=== PATIENT | female | born 1970 | race Hispanic/Latino ===

== ENCOUNTER 2017-05-26 08:47 | Observation (INO) | payer MEDICAID ==
[2017-05-25 14:43] VITALS: BP 149/75
[2017-05-25 14:53] LABS: BASOPHILS % (AUTO) 0.6 % (0.0-5.0); EOSINOPHILS % (AUTO) 0.6 % (0.0-8.0); HEMATOCRIT 40.3 % (36-48); LYMPHOCYTES % (AUTO) 25.6 % (21.0-51.0); MEAN CORPUSCULAR HEMOGLOBIN 32.3 pg (27.0-33.0); MEAN CORPUSCULAR HGB CONC 34.6 g/dL (32.0-36.0); MEAN CORPUSCULAR VOLUME 93.6 fL (79-99); MONOCYTES % (AUTO) 7.5 % (3.0-13.0); NEUTROPHILS % (AUTO) 65.7 % (40.0-77.0); PLATELET COUNT (AUTO) 245 K/uL (130-400); RED BLOOD CELL COUNT(AUTO) 4.31 MIL/uL (4.00-5.50); RED CELL DISTRIBUTION WIDTH 12.6 % (11.0-15.5); WHITE BLOOD COUNT (AUTO) 7.4 K/uL (4.8-10.8)
[2017-05-25 14:55] LABS: APPEARANCE,URINE Clear (CLEAR); BILIRUBIN,URINE Negative (NEGATIVE); COLOR,URINE Yellow (YELLOW); GLUCOSE, URINE (UA) Negative (NEGATIVE); KETONES,URINE Negative (NEGATIVE); LEUKOCYTE ESTERASE ,URINE Trace (NEGATIVE); NITRATE,URINE Negative (NEGATIVE); OCCULT BLOOD,URINE Negative (NEGATIVE); PH,URINE 7.5 (5.0-8.0); PROTEIN,URINE Negative (NEGATIVE)
[2017-05-25 15:29] LABS: BACTERIA,URINE Rare /HPF (None Seen); RBC,URINE 0-1 /HPF (0-1)
[2017-05-25 15:30] LABS: SQUAMOUS EPITHELIAL CELL,UR Rare /HPF (0-2)
[2017-05-26] VITALS (22 sets, daily range): BP systolic 97–168; BP diastolic 45–92
[~2017-05-26] VITALS: Ht 157.5 cm; Wt 83.5 kg
[2017-05-26] MEDS ORDERED: MELA1TAB28 PO (09:18)
[2017-05-26] MEDS ORDERED: LACTATED RINGERS 1000ML 1,000 ML IV ONE (09:22)
[2017-05-26] MEDS ORDERED: MIDAZOLAM HCL 1 MG/ML 2ML VIAL ONE (10:41)
[2017-05-26] MEDS ORDERED: PROPOFOL 10 MG/ML 20ML VIAL IV ONE (10:42)
[2017-05-26] MEDS ORDERED: FENTANYL CITRATE PF 50 MCG/1 ML 2ML VIAL ONE ×3 (10:42→11:45)
[2017-05-26] MEDS ORDERED: CEFAZOLIN SODIUM 1 GM VIAL ONE (11:14)
[2017-05-26] MEDS ORDERED: ROCURONIUM BROMIDE 10MG/1ML 5ML VL ONE (11:43)
[2017-05-26] MEDS ORDERED: SUCCINYLCHOLINE CHLORIDE 20 MG/ML 10 ML VIAL ONE (11:43)
[2017-05-26] MEDS ORDERED: ONDANSETRON HCL MDV 20ML 2 MG/ML VIAL ONE (11:43)
[2017-05-26] MEDS ORDERED: GLYCOPYRROLATE 0.2 MG/ML 5 ML VIAL ONE (11:44)
[2017-05-26] MEDS ORDERED: PHENYLEPHRINE HCL 10 MG/ML 1ML VIAL IV ONE (11:44)
[2017-05-26] MEDS ORDERED: LIDOCAINE HCL 4% LTA SOL 4 ML VIAL ONE (11:44)
[2017-05-26] MEDS ORDERED: LIDOCAINE HCL 2% JELLY 5 ML ONE (11:44)
[2017-05-26] MEDS ORDERED: CALDOLOR 800MG+NS 250ML 250 ML IV ONE (12:19)
[2017-05-26] MEDS ORDERED: FENTANYL CITRATE PF 50 MCG/1 ML 5ML AMP IV ONE (13:27)
[2017-05-26] MEDS ORDERED: MORPHINE SULFATE 2 MG/ML 1ML SYG IV PRN (13:45)
[2017-05-26] MEDS ORDERED: ONDANSETRON HCL 4 MG/2 ML VIAL IVP PRN (13:45)
[2017-05-26] MEDS ORDERED: ACETAMINOPHEN-CODEINE 300/30MG TAB PO PRN (13:45)
[2017-05-26] MEDS ORDERED: MEPERIDINE-PF 25 MG/ML SYG ONE (13:46)
[2017-05-26] MEDS: LACTATED RINGERS 1000ML 1,000 ML IV SCH (15:49)
[2017-05-26] MEDS ORDERED: CEFAZOLIN 2GM / 50 ML 50 ML IV SCH (19:00)
[2017-05-26] MEDS: CEFAZOLIN SODIUM 1 GM VIAL IVP SCH (19:06)
[2017-05-26] MEDS: MORPHINE SULFATE 4 MG/1ML SYG IV PRN (22:34)
[2017-05-27] MEDS: CEFAZOLIN SODIUM 1 GM VIAL IVP SCH (03:01)
[2017-05-27 04:00] VITALS: BP 120/64
[2017-05-27 08:43] VITALS: BP 140/81
[2017-05-27] MEDS: MORPHINE SULFATE 4 MG/1ML SYG IV PRN ×2 (08:43→22:23)
[2017-05-27] MEDS: LACTATED RINGERS 1000ML 1,000 ML IV SCH (08:44)
[2017-05-27 11:53] VITALS: BP 120/76
[2017-05-27] MEDS: ACETAMINOPHEN-CODEINE 300/30MG TAB PO PRN (17:16)
[2017-05-27 19:00] VITALS: BP 155/86
[2017-05-27 23:50] VITALS: BP 148/74
[2017-05-28 04:57] VITALS: BP 137/67
[2017-05-28] MEDS: ACETAMINOPHEN-CODEINE 300/30MG TAB PO PRN (08:01)
[2017-05-28 08:13] VITALS: BP 134/74
[2017-05-28] MEDS ORDERED: ACET1TAB12 PO (09:42)
== END 2017-05-28 11:32 | disposition home or self-care (01) ==
LOC: DAH 08:47 → DAHIP 08:48 → 4AH 15:22
PROVIDERS: ADMIT Surgery; ATTEND Surgery
DX: C50.911 Malignant neoplasm of unspecified site of right female breast (principal)
CPT/HCPCS: 19303; 19307; 36415; 81001; 84703; 85025; 88307; 88309; 96374; 96375; 96376 ×2; A4218 ×2; A4452; A4930; G0378 ×51; J0330; J0690 ×3; J1741; J2175; J2250; J2270 ×4; J2370; J2704; J3010 ×4; J3490 ×2; J7030; J7120 ×2

== ENCOUNTER → 2017-06-17 | Outpatient (CLI) | payer MEDICAID ==
[~2017-06-17] MED LIST: ACET1TAB12 PO; MELA1TAB28 PO
== END | disposition home or self-care (01) ==
LOC: RAH 09:44
PROVIDERS: ATTEND Internal Medicine Medical Oncology
DX: Z45.2 Encounter for adjustment and management of vascular access device (principal); I51.7 Cardiomegaly; Z98.890 Other specified postprocedural states
CPT/HCPCS: 93306

== ENCOUNTER 2017-06-23 06:23 | Inpatient (IN) | payer MEDICAID ==
[2017-06-22 10:52] LABS: BASOPHILS % (AUTO) 0.7 % (0.0-5.0); EOSINOPHILS % (AUTO) 0.9 % (0.0-8.0); HEMATOCRIT 39.6 % (36-48); LYMPHOCYTES % (AUTO) 28.5 % (21.0-51.0); MEAN CORPUSCULAR HGB CONC 34.3 g/dL (32.0-36.0); MEAN CORPUSCULAR VOLUME 93.3 fL (79-99); MONOCYTES % (AUTO) 6.6 % (3.0-13.0); NEUTROPHILS % (AUTO) 63.3 % (40.0-77.0); PLATELET COUNT (AUTO) 269 K/uL (130-400); RED BLOOD CELL COUNT(AUTO) 4.24 MIL/uL (4.00-5.50); RED CELL DISTRIBUTION WIDTH 12.4 % (11.0-15.5)
[2017-06-22 11:30] VITALS: BP 119/66
[~2017-06-23] VITALS: Ht 157.5 cm; Wt 77.4 kg
[2017-06-23] VITALS (21 sets, daily range): BP systolic 123–154; BP diastolic 64–84
[2017-06-23] MEDS: CEFAZOLIN SODIUM 1 GM VIAL IVP SCH ×2 (07:00→07:42)
[2017-06-23] MEDS ORDERED: LACTATED RINGERS 1000ML 1,000 ML IV ONE (07:18)
[2017-06-23] MEDS ORDERED: HEPARIN SODIUM 1000UNIT/ML 10ML VIAL ONE (07:28)
[2017-06-23] MEDS ORDERED: ONDANSETRON HCL 4 MG/2 ML VIAL IVP ONE (07:37)
[2017-06-23] MEDS ORDERED: MIDAZOLAM HCL 1 MG/ML 2ML VIAL IVP ONE (07:37)
[2017-06-23] MEDS ORDERED: GLYCOPYRROLATE 0.2 MG/ML 5 ML VIAL IM ONE (07:37)
[2017-06-23] MEDS ORDERED: LIDOCAINE PF 2% 5ML ABBOJECT IVP ONE (07:37)
[2017-06-23] MEDS ORDERED: DEXAMETHASONE SOD PHOSPHATE 10MG/ML 1ML VIAL IM ONE (07:37)
[2017-06-23] MEDS ORDERED: PROPOFOL 10 MG/ML 20ML VIAL IV ONE ×2 (07:38→08:33)
[2017-06-23] MEDS ORDERED: FENTANYL CITRATE PF 50 MCG/1 ML 2ML VIAL IJ ONE (07:38)
[2017-06-23] MEDS ORDERED: BUPIVACAINE/PF 0.25% 30ML VIAL IJ ONE (09:20)
[2017-06-23] MEDS ORDERED: FENTANYL CITRATE PF 50 MCG/1 ML 2ML VIAL ONE (09:49)
[2017-06-23] MEDS ORDERED: SIMETHICONE 80 MG TAB.CHEW PO PRN (11:00)
[2017-06-23] MEDS ORDERED: MEPERIDINE 10MG/ML 50ML PCA 50 ML IV PRN (11:00)
[2017-06-23] MEDS ORDERED: PROMETHAZINE HCL 25 MG/ML 1ML AMPULE IM PRN (11:00)
[2017-06-23] MEDS ORDERED: DOCUSATE SODIUM 100 MG CAP PO PRN (11:00)
[2017-06-23] MEDS ORDERED: ACETAMINOPHEN-CODEINE 300/30MG TAB PO PRN (11:00)
[2017-06-23] MEDS ORDERED: ONDANSETRON HCL 4 MG/2 ML VIAL IV PRN (11:00)
[2017-06-23] MEDS ORDERED: NALOXONE HCL 0.4 MG/1 ML ML IVP PRN (11:00)
[2017-06-23] MEDS ORDERED: DiphenhydrAMINE HCL 50 MG/ML VIAL IV PRN (11:00)
[2017-06-23] MEDS ORDERED: BISACODYL 10 MG SUPP.RECT RC PRN (11:00)
[2017-06-23] MEDS ORDERED: MEPERIDINE-PF 25 MG/ML SYG ONE ×2 (11:10→11:18)
[2017-06-23 11:32] LABS: APPEARANCE BODY FLUID CLOUDY (CLEAR); COLOR,BODY FLUID RED (LT YELLOW)
[2017-06-23 11:33] LABS: TOTAL VOLUME,BODY FLUID 38 mL
[2017-06-23 11:34] LABS: BODY FLUID WBC 7 /cu. mm.; SPECIMENTYPE,BODY FLUID WASHINGS
[2017-06-23 11:35] LABS: BODY FLUID RBC 13125 /cu. mm.
[2017-06-23] MEDS ORDERED: PROMETHAZINE HCL 25 MG/ML 1ML AMPULE IM ONE ×2 (11:50→14:30)
[2017-06-23 12:13] LABS: BF LYMPHOCYTE 1 %
[2017-06-23] MEDS ORDERED: MEPERIDINE-PF 75 MG/ML SYG ONE (12:53)
[2017-06-23] MEDS: DEXTROSE 5 %-0.45 % NACL 1,000 ML IV PRN ×2 (13:21→23:41)
[2017-06-23] MEDS ORDERED: CALDOLOR 800MG+NS 250ML 250 ML IV ONE (14:03)
[2017-06-23] MEDS: CALDOLOR 800MG+NS 250ML 250 ML IVPB SCH ×2 (14:11→22:10)
[2017-06-23] MEDS ORDERED: MEPERIDINE HCL/PF 25 MG/0.5 ML AMPUL IM ONE (14:30)
[2017-06-23] MEDS: CEFAZOLIN 3GM /D5W 100ML 100 ML IV SCH ×2 (16:15→23:37)
[2017-06-24 00:36] VITALS: BP 143/74
[2017-06-24 03:26] VITALS: BP 134/58
[2017-06-24] MEDS: CEFAZOLIN SODIUM 1 GM VIAL IVP SCH (05:00)
[2017-06-24 06:52] LABS: HEMATOCRIT 35.1 % (36-48); MEAN CORPUSCULAR HEMOGLOBIN 31.5 pg (27.0-33.0); MEAN CORPUSCULAR HGB CONC 34.1 g/dL (32.0-36.0); MEAN CORPUSCULAR VOLUME 92.4 fL (79-99); PLATELET COUNT (AUTO) 239 K/uL (130-400); RED CELL DISTRIBUTION WIDTH 12.3 % (11.0-15.5); WHITE BLOOD COUNT (AUTO) 10.5 K/uL (4.8-10.8)
[2017-06-24 08:19] VITALS: BP 133/79
[2017-06-24] MEDS ORDERED: ACETAMINOPHEN-CODEINE 300/30MG TAB PO PRN (10:30)
[2017-06-24] MEDS ORDERED: IBUPROFEN 800 MG TAB PO SCH (11:00)
[2017-06-24] MEDS ORDERED: SIMETHICONE 80 MG TAB.CHEW PO PRN (12:15)
[2017-06-24 12:21] VITALS: BP 147/91
[2017-06-24 15:55] VITALS: BP 148/90
== END 2017-06-24 16:00 | disposition home or self-care (01) | DRG 364 ==
LOC: DAH 06:23 → WSH 06:24
PROC: 0UT70ZZ Resection of Bilateral Fallopian Tubes, Open Approach (ICD-10-PCS; 2017-06-23)
PROC: 0UT20ZZ Resection of Bilateral Ovaries, Open Approach (ICD-10-PCS; principal; 2017-06-23 07:38)
PROC: 0WJJ4ZZ Inspection of Pelvic Cavity, Percutaneous Endoscopic Approach (ICD-10-PCS; 2017-06-23 07:38)
PROC: 0JH63XZ Insertion of Tunneled Vascular Access Device into Chest Subcutaneous Tissue and Fascia, Percutaneous Approach (ICD-10-PCS; 2017-06-23 07:38)
PROC: 05H633Z Insertion of Infusion Device into Left Subclavian Vein, Percutaneous Approach (ICD-10-PCS; 2017-06-23 07:38)
DX: C50.919 Malignant neoplasm of unspecified site of unspecified female breast (principal); E66.9 Obesity, unspecified; Z15.01 Genetic susceptibility to malignant neoplasm of breast; N73.6 Female pelvic peritoneal adhesions (postinfective); Z68.31 Body mass index [BMI] 31.0-31.9, adult
CPT/HCPCS: 36415; 71045; 84703; 85025; 85027; 88305; 89051; A4218; C1788; J0690; J1100; J1644; J1741; J2001; J2175; J2250; J2405; J2550; J2704; J3010; J3490; J7120

== ENCOUNTER → 2018-04-13 | Outpatient (CLI) | payer MEDICAID | END | disposition home or self-care (01) | LOC: RAH 13:01 | PROVIDERS: ATTEND Internal Medicine Medical Oncology | DX: M89.8X9 Other specified disorders of bone, unspecified site (principal); Z85.3 Personal history of malignant neoplasm of breast | CPT/HCPCS: 78306; A9503 ==

== ENCOUNTER → 2018-08-29 | Outpatient (CLI) | payer MEDICAID | END | disposition home or self-care (01) | LOC: RAH 10:31 | PROVIDERS: ATTEND Family Medicine | DX: R22.9 Localized swelling, mass and lump, unspecified (principal); Z85.3 Personal history of malignant neoplasm of breast | CPT/HCPCS: 76882 ==

== ENCOUNTER → 2018-09-20 | Outpatient (CLI) | payer MEDICAID | END | disposition home or self-care (01) | LOC: RAH 17:08 | PROVIDERS: ATTEND Family Medicine | DX: R03.0 Elevated blood-pressure reading, without diagnosis of hypertension (principal); R05 Cough; R10.84 Generalized abdominal pain | CPT/HCPCS: 71046; 74018 ==

== ENCOUNTER → 2018-10-03 | Outpatient (CLI) | payer MEDICAID ==
[~2018-10-03] MED LIST changes: -ACET1TAB12 PO; +LIDOCAINE HCL 1% 20 ML VIAL ONE; -MELA1TAB28 PO; +SODIUM BICARB 50MEQ 50ML VIAL ONE
--- NOTE | 2018-10-03 08:50 | NUR ---
ULTRASOUND GUIDED BIOPSY LEFT AXILLARY LYMPH NODE ULTRASOUND OF THE LEFT AXILLA PERFORMED BY [employer]. DR. LÓPEZ VIEWED IMAGES AND PERFORMED ULTRASOUND. NOTED NOTHING TO BIOPSY. DR. LÓPEZ INSTRUCTED PATIENT TO FOLLOWUP WITH DR. ZIMMERMAN AND INFORMED HER HE RECOMMENDS A REPEAT ULTRASOUND OF THE LEFT AXILLA IN [address] LÓPEZ STATED HE WOULD CALL DR ZIMMERMAN TO INFORM HIM.
== END | disposition home or self-care (01) ==
LOC: RAH 07:42
PROVIDERS: ATTEND Internal Medicine Medical Oncology
DX: R59.0 Localized enlarged lymph nodes (principal)
CPT/HCPCS: 76882; J3490

== ENCOUNTER 2018-11-29 05:38 | Day surgery (SDC) | payer MEDICAID ==
[~2018-11-29] VITALS: Ht 154.9 cm; Wt 75.3 kg
[~2018-11-29 05:38] MED LIST changes: -LIDOCAINE HCL 1% 20 ML VIAL ONE; +LORA0.5T2 PO; +LURA40TA PO; +SIMV10TA97 PO; -SODIUM BICARB 50MEQ 50ML VIAL ONE; +TRAM50TA4 PO; +TRAZ150T79 PO; +TRINTELLIX PO; +VENL-53 PO
[2018-11-29] MEDS ORDERED: SODIUM CHLORIDE 0.9% 1000ML 1,000 ML IV ONE (05:40)
[2018-11-29] MEDS ORDERED: PROPOFOL 10 MG/ML 20ML VIAL IV ONE ×2 (07:54→07:56)
[2018-11-29 08:18] VITALS: BP 154/92
[2018-11-29 08:23] VITALS: BP 165/88
[2018-11-29 08:30] VITALS: BP 172/97
== END 2018-11-29 08:40 | disposition home or self-care (01) ==
LOC: DAH 05:38 → ENDO 05:38
PROVIDERS: ATTEND Internal Medicine Gastroenterology
DX: Z12.11 Encounter for screening for malignant neoplasm of colon (principal); D12.0 Benign neoplasm of cecum; K62.1 Rectal polyp; K29.70 Gastritis, unspecified, without bleeding; B96.81 Helicobacter pylori [H. pylori] as the cause of diseases classified elsewhere; K22.8 Other specified diseases of esophagus; K57.30 Diverticulosis of large intestine without perforation or abscess without bleeding; K64.0 First degree hemorrhoids; K44.9 Diaphragmatic hernia without obstruction or gangrene; K31.89 Other diseases of stomach and duodenum; F41.9 Anxiety disorder, unspecified; E78.5 Hyperlipidemia, unspecified; M19.90 Unspecified osteoarthritis, unspecified site; F32.9 Major depressive disorder, single episode, unspecified; R13.10 Dysphagia, unspecified; E78.2 Mixed hyperlipidemia; Z87.891 Personal history of nicotine dependence; Z85.3 Personal history of malignant neoplasm of breast; J45.909 Unspecified asthma, uncomplicated; Z79.899 Other long term (current) drug therapy; Z90.10 Acquired absence of unspecified breast and nipple; Z80.0 Family history of malignant neoplasm of digestive organs
CPT/HCPCS: 43239; 45380; 45385; 88305; A4215; A4221; A4222; A4223; A4606; A4620; A4663; J2704 ×2; J7030

== ENCOUNTER 2018-12-13 22:36 | Emergency (ER) | payer MEDICAID ==
[2018-12-13] MEDS ORDERED: METHYLPREDNISOLONE SOD SUCC 125MG/2ML VIAL ONE (22:58)
[2018-12-13] MEDS ORDERED: IPRATROPIUM/ALBUTEROL SULFATE 3 ML SOLUTION IH ONE (23:07)
[2018-12-14] MEDS ORDERED: IPRATROPIUM/ALBUTEROL SULFATE 3 ML SOLUTION IH ONE
== END 2018-12-14 00:36 | disposition home or self-care (01) ==
LOC: EDH 22:36
DX: J20.9 Acute bronchitis, unspecified (principal); E78.5 Hyperlipidemia, unspecified; F32.9 Major depressive disorder, single episode, unspecified; F41.9 Anxiety disorder, unspecified; K21.9 Gastro-esophageal reflux disease without esophagitis; Z87.891 Personal history of nicotine dependence; Z85.3 Personal history of malignant neoplasm of breast; Z98.51 Tubal ligation status
CPT/HCPCS: 71045; 84484 ×2; 93005; 94640 ×2; 96374; 99285; J2930

== ENCOUNTER → 2019-07-30 | Outpatient (CLI) | payer MEDICAID ==
[~2019-07-30] MED LIST changes: +FAMO40TA7 PO; +FENO145T26 PO; +MONT10TA26 PO; +OMEP40CA13 PO; +POLYETHYLENE PO
== END | disposition home or self-care (01) ==
LOC: RAH 09:51
PROVIDERS: ATTEND Internal Medicine
DX: I51.7 Cardiomegaly (principal)
CPT/HCPCS: 93306; 93356

== ENCOUNTER → 2019-08-07 | Outpatient (CLI) | payer OTHER | END | disposition home or self-care (01) | LOC: RAH 13:48 | PROVIDERS: ATTEND Internal Medicine Cardiovascular Disease | DX: Z13.6 Encounter for screening for cardiovascular disorders (principal) | CPT/HCPCS: 75571 ==

== ENCOUNTER 2019-09-11 07:13 | Day surgery (SDC) | payer MEDICAID ==
[2019-09-07 11:13] LABS: BASOPHILS % (AUTO) 0.6 % (0.0-5.0); EOSINOPHILS % (AUTO) 0.7 % (0.0-8.0); HEMATOCRIT 40.5 % (36-48); LYMPHOCYTES % (AUTO) 28.4 % (21.0-51.0); MEAN CORPUSCULAR HEMOGLOBIN 32.5 pg (27.0-33.0); MEAN CORPUSCULAR HGB CONC 33.3 g/dL (32.0-36.0); MEAN CORPUSCULAR VOLUME 97.6 fL (79-99); MONOCYTES % (AUTO) 9.5 % (3.0-13.0); NEUTROPHILS % (AUTO) 60.4 % (40.0-77.0); PLATELET COUNT (AUTO) 251 K/uL (130-400); RED BLOOD CELL COUNT(AUTO) 4.15 MIL/uL (4.00-5.50); RED CELL DISTRIBUTION WIDTH 12.7 % (11.0-15.5); WHITE BLOOD COUNT (AUTO) 6.8 K/uL (4.8-10.8)
[2019-09-07 11:25] LABS: CREATININE 0.6 mg/dL (0.5-1.5); POTASSIUM 3.5 mmol/L (3.5-5.1)
[2019-09-07 11:42] LABS: INR 0.89 (0.85-1.15); PARTIAL THROMBOPLASTIN TIME 25.7 SEC (26.3-35.5); PROTHROMBIN TIME 9.7 SEC (9.6-11.6)
[2019-09-10 09:59] VITALS: BP 157/77
[~2019-09-11] VITALS: Ht 158.8 cm; Wt 79.1 kg
[~2019-09-11 07:13] MED LIST changes: -TRAM50TA4 PO; -TRAZ150T79 PO; -VENL-53 PO
[2019-09-11 08:42] VITALS: BP 175/81
[2019-09-11] MEDS: SODIUM CHLORIDE 0.9% 1000ML 1,000 ML IV ONE (08:47)
[2019-09-11] MEDS ORDERED: LIDOCAINE HCL 1% MDV 50ML VIAL ONE (09:13)
[2019-09-11] MEDS ORDERED: FENTANYL CITRATE PF 50 MCG/1 ML 2ML VIAL ONE (09:48)
[2019-09-11] MEDS ORDERED: OCTYL 2-CYANOACRYLATE 1 EACH TP ONE (09:57)
[2019-09-11 10:15] VITALS: BP 187/95
[2019-09-11 10:30] VITALS: BP 161/90
[2019-09-11 10:45] VITALS: BP 171/83
[2019-09-11 11:00] VITALS: BP 163/83
== END 2019-09-11 11:20 | disposition home or self-care (01) ==
LOC: DAH 07:13
PROVIDERS: ATTEND Internal Medicine Medical Oncology
DX: Z45.2 Encounter for adjustment and management of vascular access device (principal); Z11.59 Encounter for screening for other viral diseases; I10 Essential (primary) hypertension; E78.5 Hyperlipidemia, unspecified; J45.909 Unspecified asthma, uncomplicated; Z98.890 Other specified postprocedural states; Z85.3 Personal history of malignant neoplasm of breast; Z87.891 Personal history of nicotine dependence; Z79.899 Other long term (current) drug therapy; Z79.01 Long term (current) use of anticoagulants
CPT/HCPCS: 36415; 36590; 77001; 80048; 85025; 85610; 85730; A4606; J1644; J3010; J3490; J7030

== ENCOUNTER 2020-02-12 13:45 | Emergency (ER) | payer MEDICAID ==
[~2020-02-12 13:45] MED LIST changes: -MONT10TA26 PO; +MONT10TA96 PO
[2020-02-12] MEDS ORDERED: DEXAMETHASONE SOD PHOSPHATE 10MG/ML 1ML VIAL ONE (15:48)
== END 2020-02-12 15:59 | disposition home or self-care (01) ==
LOC: EDH 13:45
DX: T78.3XXA Angioneurotic edema, initial encounter (principal); F41.9 Anxiety disorder, unspecified; I10 Essential (primary) hypertension; F32.9 Major depressive disorder, single episode, unspecified; K21.9 Gastro-esophageal reflux disease without esophagitis; Z85.3 Personal history of malignant neoplasm of breast; X58.XXXA Exposure to other specified factors, initial encounter
CPT/HCPCS: 87804 ×2; 87880; 96372; 99283; J1100

== ENCOUNTER → 2020-06-19 | Outpatient (CLI) | payer MEDICAID ==
[~2020-06-19] MED LIST changes: +MONT10TA32 PO; -MONT10TA96 PO
== END | disposition home or self-care (01) ==
LOC: OIH 14:29
PROVIDERS: ATTEND Family Medicine
DX: R06.02 Shortness of breath (principal); R05 Cough
CPT/HCPCS: 71046

== ENCOUNTER → 2020-07-29 | Outpatient (CLI) | payer MEDICAID | END | disposition home or self-care (01) | LOC: RAH 08:14 | PROVIDERS: ATTEND Family Medicine | DX: K76.89 Other specified diseases of liver (principal); K76.0 Fatty (change of) liver, not elsewhere classified; R16.0 Hepatomegaly, not elsewhere classified | CPT/HCPCS: 76705 ==

== ENCOUNTER → 2020-10-02 | Outpatient (CLI) | payer MEDICAID ==
[~2020-10-02] MED LIST changes: -OMEP40CA13 PO; +OMEP40CA21 PO
== END | disposition home or self-care (01) ==
LOC: RAH 09:51
PROVIDERS: ATTEND Family Medicine
DX: R22.2 Localized swelling, mass and lump, trunk (principal)
CPT/HCPCS: 76882

== ENCOUNTER → 2021-07-31 | Outpatient (CLI) | payer MEDICAID ==
[~2021-07-31] MED LIST changes: -LURA40TA PO; +LURA40TA2 PO; +MONT-39 PO; -MONT10TA32 PO
== END | disposition home or self-care (01) ==
LOC: RAH 07:16
PROVIDERS: ATTEND Internal Medicine Gastroenterology
DX: R14.0 Abdominal distension (gaseous) (principal); R10.13 Epigastric pain
CPT/HCPCS: 78264; A9541

== ENCOUNTER 2022-08-15 17:27 | Emergency (ER) | payer MEDICAID ==
[~2022-08-15] VITALS: Ht 154.9 cm; Wt 86.2 kg
[2022-08-15 17:58] LABS: BASOPHILS % (AUTO) 0.3 % (0.0-5.0); EOSINOPHILS % (AUTO) 0.4 % (0.0-8.0); HEMATOCRIT 37.6 % (36-48); LYMPHOCYTES % (AUTO) 19.9 % (21.0-51.0); MEAN CORPUSCULAR HEMOGLOBIN 30.8 pg (27.0-33.0); MEAN CORPUSCULAR VOLUME 93.5 fL (79-99); MONOCYTES % (AUTO) 6.3 % (3.0-13.0); NEUTROPHILS % (AUTO) 72.8 % (40.0-77.0); PLATELET COUNT (AUTO) 310 K/uL (130-400); RED BLOOD CELL COUNT(AUTO) 4.02 MIL/uL (4.00-5.50); RED CELL DISTRIBUTION WIDTH 12.6 % (11.0-15.5); WHITE BLOOD COUNT (AUTO) 11.7 K/uL (4.8-10.8)
[2022-08-15 17:58] LABS: BASE EXCESS,VENOUS BLOOD GAS 1.1 (-2.0-3.0); HCO3,VENOUS BLOOD GAS 24.2 (21.0-28.0); PCO2,VENOUS BLOOD GAS 34 (32-45); PH,VENOUS BLOOD GAS 7.471 (7.350-7.450)
[2022-08-15 18:20] LABS: ALBUMIN 3.6 g/dL (3.5-5.0); CREATININE 0.7 mg/dL (0.5-1.5); MAGNESIUM 1.4 mg/dL (1.80-2.40); POTASSIUM 3.5 mmol/L (3.5-5.1); TOTAL PROTEIN, SERUM 7.3 g/dL (6.0-8.3)
[2022-08-15 18:25] LABS: B-TYPE NATRIURETIC PEPTIDE 12 pg/mL (0-100)
[2022-08-15 19:22] VITALS: BP 126/60
== END 2022-08-15 20:35 | disposition home or self-care (01) ==
LOC: EDH 17:27
DX: R42 Dizziness and giddiness (principal); F41.9 Anxiety disorder, unspecified; F32.A Depression, unspecified; J45.909 Unspecified asthma, uncomplicated; I10 Essential (primary) hypertension; Z79.899 Other long term (current) drug therapy; Z85.3 Personal history of malignant neoplasm of breast
CPT/HCPCS: 36415; 36600; 71045; 80053; 82803; 83735; 83880; 84484; 85025; 93005

== ENCOUNTER → 2023-01-04 | Outpatient (CLI) | payer OTHER | END | disposition home or self-care (01) | LOC: RAH 14:56 | PROVIDERS: ATTEND Internal Medicine | DX: M17.12 Unilateral primary osteoarthritis, left knee (principal); M25.562 Pain in left knee | CPT/HCPCS: 73562 ==

== ENCOUNTER → 2023-06-15 | Outpatient (CLI) | payer MEDICAID | END | disposition home or self-care (01) | LOC: SHCH 10:51 | PROVIDERS: ATTEND Internal Medicine Cardiovascular Disease | DX: R07.9 Chest pain, unspecified (principal) | CPT/HCPCS: 93306 ==

== ENCOUNTER → 2023-07-14 | Outpatient (CLI) | payer OTHER | END | disposition home or self-care (01) | LOC: RAH 12:55 | PROVIDERS: ATTEND Internal Medicine Cardiovascular Disease | DX: Z13.6 Encounter for screening for cardiovascular disorders (principal) | CPT/HCPCS: 75571 ==

== ENCOUNTER 2023-08-29 17:23 | Emergency (ER) | payer MEDICAID, OTHER ==
[~2023-08-29] VITALS: Ht 154.9 cm; Wt 81.6 kg
[2023-08-29 17:53] LABS: BASOPHILS # (AUTO) 0.04 K/uL (0.00-0.20); BASOPHILS % (AUTO) 0.5 % (0.0-5.0); EOSINOPHILS # (AUTO) 0.14 K/uL (0.00-0.70); EOSINOPHILS % (AUTO) 1.6 % (0.0-8.0); HEMATOCRIT 32.9 % (36-48); IMMATURE GRANULOCYTE ABSOLUTE 0.05 K/uL (0-1); LYMPHOCYTES % (AUTO) 23.8 % (21.0-51.0); MEAN CORPUSCULAR HEMOGLOBIN 31.5 pg (27.0-33.0); MEAN CORPUSCULAR HGB CONC 33.4 g/dL (32.0-36.0); MEAN CORPUSCULAR VOLUME 94.3 fL (79-99); MONOCYTES # (AUTO) 0.7 K/uL (0.1-1.0); NEUTROPHILS # (AUTO) 5.6 K/uL (1.8-7.7); NEUTROPHILS % (AUTO) 65.5 % (40.0-77.0); PLATELET COUNT (AUTO) 327 K/uL (130-400); RED BLOOD CELL COUNT(AUTO) 3.49 MIL/uL (4.00-5.50); RED CELL DISTRIBUTION WIDTH 12.4 % (11.0-15.5); WHITE BLOOD COUNT (AUTO) 8.5 K/uL (4.8-10.8)
[2023-08-29 18:11] LABS: ALBUMIN 3.3 g/dL (3.5-5.0); BILIRUBIN,TOTAL 0.5 mg/dL (0.2-1.0); CREATININE 0.8 mg/dL (0.5-1.0); POTASSIUM 3.1 mmol/L (3.5-5.1); TOTAL PROTEIN, SERUM 7.6 g/dL (6.0-8.3)
[2023-08-29 18:47] LABS: APPEARANCE,URINE CLEAR (CLEAR); BILIRUBIN,URINE NEGATIVE (NEGATIVE); COLOR,URINE LIGHT-YELLOW (YELLOW); GLUCOSE, URINE (UA) NEGATIVE (NEGATIVE); KETONES,URINE NEGATIVE (NEGATIVE); LEUKOCYTE ESTERASE ,URINE NEGATIVE Leu/uL (NEGATIVE); NITRATE,URINE NEGATIVE (NEGATIVE); OCCULT BLOOD,URINE NEGATIVE (NEGATIVE); PH,URINE 5.5 (5.0-8.0); PROTEIN,URINE NEGATIVE (NEGATIVE); UROBILINOGEN,URINE 0.2 mg/dL (0.2-1.0)
[2023-08-29 18:48] LABS: ADD UA MICROSCOPIC NO
[2023-08-29] MEDS: NS-20 MEQ KCL 1000ML 1,000 ML IV STA (20:59)
[2023-08-29 21:29] LABS: RAPID GROUP A STREP negative (NEGATIVE)
[2023-08-29 21:32] LABS: SARS-CoV-2, RNA, NAAT NEGATIVE SARS CoV-2 (NEGATIVE)
[2023-08-29 21:39] LABS: INFLUENZA TYPE A Negative For Type A (NEGATIVE); INFLUENZA TYPE B Negative For Type B (NEGATIVE)
[2023-08-29 22:14] VITALS: BP 146/72; PULSE 92; RESP 18; O2SAT 96
== END 2023-08-29 22:57 | disposition home or self-care (01) ==
LOC: EDH 17:23
DX: J06.9 Acute upper respiratory infection, unspecified (principal); F41.9 Anxiety disorder, unspecified; J45.909 Unspecified asthma, uncomplicated; I10 Essential (primary) hypertension; F32.A Depression, unspecified; Z79.899 Other long term (current) drug therapy; Z85.3 Personal history of malignant neoplasm of breast; Z98.51 Tubal ligation status; Z20.822 Contact with and (suspected) exposure to COVID-19
CPT/HCPCS: 99284; 96360; 87635; 80053; 85025; 87040 ×2; 87880; 87804 ×2; 83605; 81003; 36415; J3480

== ENCOUNTER → 2024-02-24 | Outpatient (CLI) | payer MEDICAID ==
--- NOTE | 2024-02-24 14:18 | HMCIMG ---
Exam Type: CT ABD/PEL WO CON RENAL/APPY Clinical Information: LOWER ABD PAIN Comparison: None Contrast: 100 cc's Isovue 370 IV, no complications or adverse reactions CT Dose Index (CTDI): 31.60 mGy Dose Length Product (DLP): 1740.80 total mGy-cm Findings: No evidence of nephro or ureterolithiasis is found. No hydronephrosis or ureteral dilatation is seen. The lung bases are clear. The stomach is unremarkable. It shows no wall thickening. No gross ulceration is seen. It is not overly distended. There are no surrounding inflammatory changes. No wall lesions are identified to suggest cancer. The spleen is unremarkable. It is not enlarged. The pancreas shows normal anatomy. It is not fatty replaced. It shows no lesions. The pancreatic duct is not dilated. The gallbladder is unremarkable. It shows no cholelithiasis. The gallbladder wall is normal in thickness. There is no pericholecystic fluid. The is no acute or chronic inflammation noted. The adrenal glands are unremarkable. There is no enlargement. No lesions are noted. The liver is unremarkable. It shows no focal masses. The appendix is unremarkable. It shows no evidence of inflammation. No appendicolith is seen. The small bowel is unremarkable. There is no evidence of dilatation to suggest obstruction. No evidence of adynamic ileus is seen. There is no small bowel wall thickening to suggest enteritis. The colon is unremarkable. The urinary bladder is unremarkable. There is no wall thickening to suggest tumor or inflammation. There are no intraluminal calculi. There are no diverticula. There is no evidence of chronic bladder outlet obstruction. There is no evidence of urinary bladder distention to suggest urinary retention. The other pelvic structures are unremarkable. The bony and vascular structures are unremarkable for the patient's age. IMPRESSION: NEGATIVE CT SCAN OF THE ABDOMEN AND PELVIS WITH ORAL AND IV CONTRAST. This study was performed using dose reduction techniques to include automated exposure control and/or adjustment of the mA and/or kV according to patient size.
== END | disposition home or self-care (01) ==
LOC: RAH 13:43
PROVIDERS: ATTEND Internal Medicine Gastroenterology
DX: R10.30 Lower abdominal pain, unspecified (principal)
CPT/HCPCS: 74176

== ENCOUNTER → 2024-04-09 | Outpatient (CLI) | payer MEDICAID ==
--- NOTE | 2024-04-09 17:27 | HMCIMG ---
HIP UNILAT 2-3VW RIGHT HISTORY: Right hip pain COMPARISON: None TECHNIQUE: 3 images of right hip were obtained. FINDINGS: Bilateral hip replacement changes are seen. There is no acute displaced fracture or dislocation. Degenerative changes are seen. IMPRESSION: 1. Findings as described above.
== END | disposition home or self-care (01) ==
LOC: RAH 15:45
PROVIDERS: ATTEND Family Medicine
DX: M16.11 Unilateral primary osteoarthritis, right hip (principal); M25.551 Pain in right hip
CPT/HCPCS: 73502

== ENCOUNTER 2024-04-22 19:32 | Emergency (ER) | payer MEDICAID ==
[~2024-04-22] VITALS: Ht 154.9 cm; Wt 83.0 kg
[2024-04-22] MEDS ORDERED: IBUP-2070 PO (20:17)
[2024-04-22] MEDS ORDERED: TRAM-543 PO (20:17)
[2024-04-22] MEDS ORDERED: ACYC-138 PO (20:17)
--- NOTE | 2024-04-22 20:28 | ERN ---
ED Note History of Present Illness Stated Complaint: RASH Chief Complaint: Wound Check Time Seen by MD: 19:32 Time Seen by Midlevel: 20:00 Dictation: Ms. Melgar is a 53-year-old female with history of obesity, hypertension, anxiety, asthma, and type 2 diabetes who presented to the emergency department for evaluation of rash. She states that on Tuesday she woke up with pain and what she thought was a bug bite to her right thigh. She states that additional lesions appeared that were fluid filled. She states it has become more painful with shooting pain down the leg and there is surrounding erythema. She she stat es she has felt febrile. She denies having any chills, shortness of breath, cough, chest pain, palpitations, edema, abdominal pain, nausea, vomiting, diarrhea, dysuria, headache, or dizziness. She states she has not received her shingles vaccine Allergies: Coded Allergies: No Known Drug Allergies (Unverified Allergy, Unknown, 05/25/17) losartan (Unverified Allergy, Unknown, 08/29/23) Home Meds Active Scripts Tramadol HCl/Acetaminophen (Tramadol-Acetaminophn 37.5-325) 37.5 Mg-325 Mg Tablet, 1 EACH PO q12 hours PRN, #7 TAB 0 Refills Prov:MATA SIU NP 04/22/24 Ibuprofen (Ibuprofen) 600 Mg Tablet, 600 MG PO Q6H PRN for PAIN, #15 TAB 0 Refills Prov:MATA SIU NP 04/22/24 Acyclovir (Acyclovir) 800 Mg Tablet, 800 MG PO 5 times daily for 7 Days, #35 TAB 0 Refills Prov:MATA SIU NP 04/22/24 Reported Medications [Polyethylene Powder] No Conflict Check, 0.5 CAP PO DAILY PRN for CONSTIPATION 09/10/19 Omeprazole (Omeprazole) 40 Mg Capsule.dr, 40 MG PO AM, CAP 09/10/19 Fenofibrate Nanocrystallized (Fenofibrate) 145 Mg Tablet, 145 MG PO AM, TAB 09/10/19 Montelukast Sodium (Montelukast Sodium) 10 Mg Tablet, 10 MG PO HS, TAB 09/10/19 Famotidine (Famotidine) 40 Mg Tablet, 40 MG PO HS, TAB 09/10/19 Simvastatin (Simvastatin) 10 Mg Tablet, 10 MG PO HS, TAB 09/10/19 [Trintellix] No Conflict Check, 20 MG PO DAILY 11/28/18 Lorazepam (Lorazepam) 0.5 Mg Tablet, 0.5 MG PO TID, TAB 11/28/18 Lurasidone HCl (Latuda) 40 Mg Tablet, 40 MG PO HS, TAB 11/28/18 Past Medical History Past Medical History: Anxiety, Asthma, Depression, Hypertension, Other Additional Past Medical Hx: HX OF RT BREAST CANCER Surgical History: Hysterectomy, Other, BTL, Surgical History Other: RT AND LEFT BREAST, LT HIP PSYCH History: anxiety Family History: Negative Social History: Negative, Lives with family History: Not Applicable RN Note Reviewed/Agreed w/PFSH: Yes Review of System Dictation REVIEW OF SYSTEMS: CONSTITUTIONAL: Patient denies chills, sweats and weight changes. Reports feeling feverish EYES: Patient denies any visual symptoms. EARS, NOSE, AND THROAT: No difficulties with hearing. No symptoms of rhinitis or sore throat. CARDIOVASCULAR: Patient denies chest pains, palpitations, orthopnea and paroxysmal nocturnal dyspnea. RESPIRATORY: No dyspnea on exertion, no wheezing or cough. GI: No nausea, vomiting, diarrhea, constipation, abdominal pain, hematochezia or melena. : No urinary hesitancy or dribbling. No nocturia or urinary frequency. No abnormal urethral discharge. MUSCULOSKELETAL: Reports pain to right thigh. NEUROLOGIC: No chronic headaches, no seizures. Patient denies numbness, tingling or weakness. PSYCHIATRIC: Patient denies problems with mood disturbance. No problems with anxiety. ENDOCRINE: No excessive urination or excessive thirst. DERMATOLOGIC: Reports fluid-filled lesions to anterior aspect of the right thigh. Area is painful with surrounding erythema Initial Vital Sign VS Vital Signs Date Time Temp Pulse Resp B/P (MAP) Pulse Ox O2 Delivery O2 Flow Rate FiO2 04/22/24 19:33 97.7 90 20 161/77 97 Room Air Physical Exam Dictation Vital signs: Reviewed. Afebrile Constitutional: No acute distress. Non-toxic appearing. Head/Face: Normocephalic, atraumatic. Eyes: Periorbital areas with no swelling, redness, or edema. Lids and lashes are normal. Conjunctival injection is absent. Sclera anicteric. Pupils equal, round, reactive to light. ENT: Pinnas intact and no signs of trauma or erythema. Ear canals clear and no discharge. TMs no erythema. No nasal discharge or bleeding noted. Oropharynx with no exudate, redness, swelling, masses, exudates, or evidence of obstruction. Uvula midline. Mucous membranes moist. Neck: Trachea midline, no masses palpated, and no cervical lymphadenopathy. No swelling. Supple, full range of motion. Chest/Axilla: No tenderness, no crepitus, no paradoxical movement, no retractions. Cardiovascular: Regular rate, regular rhythm, no murmur, no gallops. Symmetric pulses. No peripheral edema. Respiratory: Respirations even and unlabored. Lung sounds clear; no wheezes, rales or rhonchi. Room air SpO2 98% Gastrointestinal: Inspection is normal. No distention is appreciated. Bowel sounds are normal. No mass or organomegaly . There is no tenderness. No rebound. No rigidity. No voluntary or involuntary guarding. No Street's sign. Neurological: Normal speech, gross motor function intact, gross sensory function intact. No focal weakness/Paresthesia. Musculoskeletal/Extremities: All extremities have full range of motion, no pain or tenderness on palpation. Symmetric pulses. There is tenderness upon palpation of the right anterior thigh Integumentary: There are moist/fluid-filled lesions to the anterior aspect of the right thigh with surrounding erythema. No drainage Skin is normal color, warm and dry. Cap refill less than 3 seconds. ED Course ED Course Orders Procedure Category Date Status Time Hydrocodone/Apap PHA 04/22/24 In Process 5/325 (Hol[place] 5/325mg) 20:30 Acyclovir 800 Mg PHA 04/22/24 In Process Tablet (Zovirax 800mg 20:30 Current Medications Medications (Trade) Dose Ordered Sig/Carie Route PRN Reason Start Time Stop Time Status Last Admin Dose Admin Acetaminophen/ Hydrocodone Bitart (NORco 5/325MG) 1 tab ONCE ONCE PO 04/22/24 20:30 04/22/24 20:31 Acyclovir (Zovirax 800mg Tab) 800 mg ONCE ONCE PO 04/22/24 20:30 04/22/24 20:31 Vital Signs Date Time Temp Pulse Resp B/P (MAP) Pulse Ox O2 Delivery O2 Flow Rate FiO2 04/22/24 19:33 97.7 90 20 161/77 97 Room Air Uneventful ED course. Vital signs stable. Afebrile. Patient with herpetic lesions to the anterior aspect of the right thigh. Findings consistent with shingles outbreak. While in the emergency department she has received dose [place] x1 for pain as well as initial dose of acyclovir. Findings were discussed with patient and all questions were answered. Medical Decision Making MDM MDM: Differential diagnosis: Insect right/envenomation, shingles rash, cellulitis Rationale: Tests considered and ordered secondary to shared decision making include: Examination Previous outside records reviewed: Old ER visits. Risk of complication and/or morbidity or mortality of patient management: None Medications-Per medication reconciliation Need for hospitalization: Patient does not meet criteria for hospitalization. Need for emergency major/minor surgery: No There are no social concerns with this patient. Prescription drug management: Ibuprofen, tramadol, acyclovir Prescriptions will include symptomatic care Patient's prior external medical records from other ER visits were reviewed by me as indicated. Prior testing and results from previous visits were reviewed. Prior tests were taken into account with medical decision making and resource utilization, independent historian/historians were used to obtain complete medical history. I independently interpreted the test that were performed, results were reviewed by me and considered findings on radiology if ordered. Medical management and examination interpretation discussions were had by me with other qualified healthcare professionals as indicated for the patient's care. DX & DISP Disposition: Discharge Departure Impression: Primary Impression: Thigh shingles Additional Impression: Shingles rash Condition: Stable Scripts Tramadol HCl/Acetaminophen (Tramadol-Acetaminophn 37.5-325) 37.5 Mg-325 Mg Tablet 1 EACH PO q12 hours PRN, #7 TAB 0 Refills Prov: MATA SIU NP 04/22/24 Ibuprofen (Ibuprofen) 600 Mg Tablet 600 MG PO Q6H PRN for PAIN, #15 TAB 0 Refills Prov: MATA SIU NP 04/22/24 Acyclovir (Acyclovir) 800 Mg Tablet 800 MG PO 5 times daily for 7 Days, #35 TAB 0 Refills Prov: MATA SIU CRYSTAL ATT[employer]ER 04/22/24 Additional Instructions: Rest. Keep lesions covered until they are dry and scabbed Cool/wet compresses may be soothing. Drink plenty of fluids. May take [id number] Tylenol or ibuprofen as needed for discomfort. May take [id number] Benadryl as needed for itching . Continue with antiviral medication acyclovir 800 mg 5 times a day x7 days. If pain is severe may take tramadol every 12 hours as needed. Ifollow up with Dr. Braun. Return to the emergency department for any worsening of symptoms or concerns Referrals: PADILLA BRAUN MD (PCP) Time of Disposition: 20:22 MATA SIU NP Apr 22, 2024 20:28
[2024-04-22] MEDS: ACYCLOVIR 200 MG CAPSULE ONE (20:38)
[2024-04-22] MEDS: ACYCLOVIR 800 MG TABLET PO ONE (20:38)
[2024-04-22] MEDS: HYDROcodone/APAP 5/325 1 TAB TABLET PO ONE (20:39)
[2024-04-22 20:43] VITALS: BP 158/72; PULSE 98; RESP 18; TEMP 98.5; O2SAT 98
== END 2024-04-22 21:10 | disposition home or self-care (01) ==
LOC: EDH 19:32
DX: B02.9 Zoster without complications (principal); F41.9 Anxiety disorder, unspecified; F32.A Depression, unspecified; I10 Essential (primary) hypertension; J45.909 Unspecified asthma, uncomplicated; Z79.899 Other long term (current) drug therapy; Z85.3 Personal history of malignant neoplasm of breast; Z90.710 Acquired absence of both cervix and uterus
CPT/HCPCS: 99283

== ENCOUNTER → 2024-06-29 | Outpatient (CLI) | payer MEDICAID ==
[~2024-06-29] MED LIST changes: +ACYC-138 PO; +IBUP-2070 PO; +TRAM-543 PO
--- NOTE | 2024-06-29 12:28 | HMCIMG ---
NM GASTRIC EMPTYING STUDY REASON: NAUSEA WITH VOMITING. COMPARISON: None TECHNIQUE: Nuclear gastric emptying study was performed with 1.5 mCi of technetium sulfa colloid with scrambled eggs through oral route. FINDINGS: T half of gastric emptying is 93 minutes which is borderline abnormal. IMPRESSION: Borderline abnormal delayed gastric emptying with T half of 93 minutes.
== END | disposition home or self-care (01) ==
LOC: RAH 07:28
PROVIDERS: ATTEND Internal Medicine Gastroenterology
DX: R11.2 Nausea with vomiting, unspecified (principal); R68.81 Early satiety
CPT/HCPCS: 78264; A9541

== ENCOUNTER 2024-10-23 23:38 | Emergency (ER) | payer MEDICAID ==
[~2024-10-23] VITALS: Ht 154.9 cm; Wt 85.3 kg
[~2024-10-23 23:38] MED LIST changes: +IBUP-1492 PO; -IBUP-2070 PO
[2024-10-23 23:40] VITALS: TEMP 98.6
--- NOTE | 2024-10-24 00:03 | ERN ---
ED Note History of Present Illness Stated Complaint: C/O RASH,HIVES,REDNESS TO BODY AFTER SHRIMP BOIL Chief Complaint: Allergic Reaction Time Seen by MD: 23:40 Dictation: A 33-year-old obese female who presented to the emergency room with a severe itchy rash all over the body and redness of the face. All this started after she ate cajun style shrimp boil. She stated that she eaten shrimp before but not this particular brand from [facility]. She denied any tongue swelling lip swelling. No shortness of breath but states that chest is getting tight. No dizziness no stridor Temperature 98.6 pulse 87 respirations 20 blood pressure 135/68 with a pulse o ximetry of 95% on room air Her chronic problems include anxiety, depression, bipolar disorder, diabetes mellitus type 2, hypertension and history of breast cancer status post double mastectomy Allergies: Coded Allergies: No Known Drug Allergies (Unverified Allergy, Unknown, 05/25/17) losartan (Unverified Allergy, Unknown, 08/29/23) Home Meds Active Scripts Hydroxyzine HCl (Atarax) 25 Mg Tab, 1 CAP PO TID for itching for 7 Days, #21 CAP 0 Refills Prov:ANA ERNANDEZ MD 10/24/24 Prednisone (Prednisone) 20 Mg Tablet, 1 TAB PO AD for 6 Days, #14 TAB 0 Refills TAKE 1 TAB BY MOUTH THREE TIMES PER DAY X3 DAYS, THEN TAKE 1 TAB BY MOUTH TWICE A DAY X2 DAYS, THEN TAKE 1 TAB BY MOUTH ONCE A DAY X1 DAY. Prov:ANA ERNANDEZ MD 10/24/24 Tramadol HCl/Acetaminophen (Tramadol-Acetaminophn 37.5-325) 37.5 Mg-325 Mg Tablet, 1 EACH PO q12 hours PRN, #7 TAB 0 Refills Prov:MATA SIU NP 04/22/24 Ibuprofen (Ibuprofen) 600 Mg Tablet, 600 MG PO Q6H PRN for PAIN, #15 TAB 0 Refills Prov:MATA SIU NP 04/22/24 Acyclovir (Acyclovir) 800 Mg Tablet, 800 MG PO 5 times daily for 7 Days, #35 TAB 0 Refills Prov:MATA SIU NP 04/22/24 Reported Medications [Polyethylene Powder] No Conflict Check, 0.5 CAP PO DAILY PRN for CONSTIPATION 09/10/19 Omeprazole (Omeprazole) 40 Mg Capsule.dr, 40 MG PO AM, CAP 09/10/19 Fenofibrate Nanocrystallized (Fenofibrate) 145 Mg Tablet, 145 MG PO AM, TAB 09/10/19 Montelukast Sodium (Montelukast Sodium) 10 Mg Tablet, 10 MG PO HS, TAB 09/10/19 Famotidine (Famotidine) 40 Mg Tablet, 40 MG PO HS, TAB 09/10/19 Simvastatin (Simvastatin) 10 Mg Tablet, 10 MG PO HS, TAB 09/10/19 [Trintellix] No Conflict Check, 20 MG PO DAILY 11/28/18 Lorazepam (Lorazepam) 0.5 Mg Tablet, 0.5 MG PO TID, TAB 11/28/18 Lurasidone HCl (Latuda) 40 Mg Tablet, 40 MG PO HS, TAB 11/28/18 Past Medical History Past Medical History: Anxiety, Bipolar, Depression, Diabetes-Type II, Hypertension Additional Past Medical Hx: HX OF RT BREAST CANCER Surgical History: Hysterectomy, Other Surgical History Other: HX OF BREAST CA (IN REMISSION); DOUBLE MASTECTOMY Family History: Negative Social History: Smokers, Drugs (Marijuana), ETOH (Occasional), Lives with family History: Not Applicable RN Note Reviewed/Agreed w/PFSH: Yes Review of System Dictation Constitutional: Negative for fever,chills, and weight loss Eyes: Negative for injury, pain,redness, and discharge ENT: Negative for injury,pain or swelling Cardiovascular: Negative for chest pain, palpitations, and edema Respiratory: Negative for shortness of breath, cough, and wheezing, Abdomen/GI: Negative for abdominal pain, nausea, vomiting, diarrhea, and constipation Back: Negative for injury and pain : Negative for injury, bleeding and discharge MS/Extremity: Negative for injury and deformity Skin: Positive for rash, , hives and redness with severe itching Neuro: Negative for headache, weakness, numbness, tingling, and seizure Psych: Negative for suicide ideation, homicidal ideation, and hallucinations Initial Vital Sign VS Vital Signs Date Time Temp Pulse Resp B/P (MAP) Pulse Ox O2 Delivery O2 Flow Rate FiO2 10/23/24 23:40 98.6 87 20 135/68 95 Room Air 10/24/24 00:12 0 21 Physical Exam Dictation General: awake, alert, NAD obese female Head/Face: Normocephalic, atraumatic erythematous skin of the face ears neck Eyes: PERRL, EOMI, vision at baseline ENT: oral cavity clear, TMs clear, no signs of infection no tongue swelling no lip swelling no stridor Neck: Trachea midline, supple, no nuchal rigidity Cardiovascular: RRR, normal S1/S2, No MRGs, no JVD Respiratory: CTAB, no respiratory distress, No rales or wheezes Abdomen: Soft, non-tender, non-distended, normal bowel sounds, no guarding or rebound. Skin: Warm, dry, normal turgor, diffuse hives throughout the body including torso and extremities. No pustules or drainage MS/Extremity: Pulses equal, no cyanosis, neurovascular intact, FROM Neuro: COAx4, GCS 15, strength 5/5, CN 2-12 intact, normal cerebellar exam, normal gait, Psych: Normal behavior, mood, and affect normal Extremities-trace edema without any palpable cords, Homans sign is negative Results (Laboratory/Radiology) Labs Reviewed?: Yes ED Course ED Course Orders Procedure Category Date Status Time Methylprednisolone PHA 10/24/24 Complete Succ 125mg (Solu-Medr 00:00 Famotidine 20mg Vial PHA 10/24/24 Complete (Pepcid 20mg Vial) 00:00 Diphenhydramine Hcl PHA 10/24/24 Complete (Benadryl Inj) 00:00 Diphenhydramine Hcl PHA 10/24/24 Complete (Benadryl Inj) 00:30 Hydrocortisone 2.5% PHA 10/24/24 Complete Cream 28g (Hytone 2. 01:00 Current Medications Medications (Trade) Dose Ordered Sig/Carie Route PRN Reason Start Time Stop Time Status Last Admin Dose Admin Diphenhydramine HCl (BENAdryl INJ) 25 mg ONCE ONCE IV 10/24/24 00:00 10/24/24 00:01 DC 10/24/24 00:12 Diphenhydramine HCl (BENAdryl INJ) 50 mg ONCE ONCE IV 10/24/24 00:30 10/24/24 00:31 DC 10/24/24 00:35 Famotidine (Pepcid 20mg Vial) 20 mg ONCE ONCE IV 10/24/24 00:00 10/24/24 00:01 DC 10/24/24 00:12 Hydrocortisone (hyTONE 2.5% CREAM 28G) ONCE ONCE TP 10/24/24 01:00 10/24/24 01:01 DC 10/24/24 01:16 Methylprednisolone Sodium Succinate (Solu-medROL 125MG) 60 mg ONCE ONCE IVP 10/24/24 00:00 10/24/24 00:01 DC 10/24/24 00:12 Vital Signs Date Time Temp Pulse Resp B/P (MAP) Pulse Ox O2 Delivery O2 Flow Rate FiO2 10/24/24 00:12 88 16 145/90 96 Room Air* 0 21 10/23/24 23:40 98.6 87 20 135/68 95 Room Air We will administer medications according to the patient's complaint. Once the results are available, will review and personally interpreted the labs to rule out any acute life-threatening emergency the trach require immediate intervention and treatment. I will then re-evaluate the patient after treatment and diagnostic exams have return to determine whether the patient requires any further testing, can safely be discharged home or need further admission to hospital for additional treatment and evaluation. Medical Decision Making MDM Differential diagnosis: Contact dermatitis, allergic reaction to shrimp, allergic reaction to ingredient in the package Rationale: Tests considered and ordered secondary to shared decision making include: Previous outside records reviewed: Old ER visits. Risk of complication and/or morbidity or mortality of patient management: None Medications-Per medication reconciliation Need for hospitalization: Patient does not meet criteria for hospitalization. Need for emergency major/minor surgery: No There are no social concerns with this patient. Prescription drug management Prescriptions will include symptomatic care Patient's prior external medical records from other ER visits were reviewed by me as indicated. Prior testing and results from previous visits were reviewed. Prior tests were taken into account with medical decision making and resource utilization, independent historian/historians were used to obtain complete medical history. I independently interpreted the test that were performed, results were reviewed by me and considered findings on radiology if ordered. Medical management and examination interpretation discussions were had by me with other qualified healthcare professionals as indicated for the patient's care. Problem List Problem List: (1) Allergic reaction (2) Urticaria (3) Allergy to shrimp DX & DISP Disposition: Discharge Departure Impression: Primary Impression: Allergic reaction Additional Impressions: Urticaria, Allergy to shrimp Condition: Stable Scripts Hydroxyzine HCl (Atarax) 25 Mg Tab 1 CAP PO TID for itching for 7 Days, #21 CAP 0 Refills Prov: ANA ERNANDEZ MD 10/24/24 Prednisone (Prednisone) 20 Mg Tablet 1 TAB PO AD for 6 Days, #14 TAB 0 Refills TAKE 1 TAB BY MOUTH THREE TIMES PER DAY X3 DAYS, THEN TAKE 1 TAB BY MOUTH TWICE A DAY X2 DAYS, THEN TAKE 1 TAB BY MOUTH ONCE A DAY X1 DAY. Prov: ANA ERNANDEZ MD 10/24/24 Additional Instructions: Patient and the caregiver have been informed of all the diagnostic tests and the imaging conducted during the today's visit to the emergency room and has verbalized understanding of the results I have personally reviewed and interpreted all diagnostic exams performed here in the ER today as well as the vital signs documented by the nursing staff. The patient is now being discharged to home and should follow up with the primary care physician or the specialist as directed by the ER staff. Follow-up with primary care provider in 1 to 2 days. Take medications as directed here in the emergency room. Okay to continue home medications unless otherwise discussed during your visit in the emergency room today. Return to your nearest emergency room if symptoms worsen or if there is no improvement. Call 911 if you need immediate assistance. Take Tylenol or Motrin [id number] as needed and if no contraindications are present. Increase oral hydration. A wound culture or [facility] please follow-up with primary care provider and advise them to get repeat ports from our facility. If you had any Richard wrap/splints that were applied here, please do not remove them until you see your primary care or specialty. Referrals: PADILLA BRAUN MD (PCP) ANA ERNANDEZ MD Oct 24, 2024 00:03
[2024-10-24] MEDS: FAMOTIDINE 20MG VIAL IV ONE (00:12)
[2024-10-24] MEDS ORDERED: PRED20TA3 PO (01:13)
[2024-10-24] MEDS ORDERED: HYD25 PO (01:13)
[2024-10-24 01:32] VITALS: BP 135/56; PULSE 83; RESP 16; O2SAT 97
== END 2024-10-24 01:41 | disposition home or self-care (01) ==
LOC: EDH 23:38
DX: T78.40XA Allergy, unspecified, initial encounter (principal); L50.9 Urticaria, unspecified; E11.9 Type 2 diabetes mellitus without complications; F17.200 Nicotine dependence, unspecified, uncomplicated; F31.9 Bipolar disorder, unspecified; F41.9 Anxiety disorder, unspecified; I10 Essential (primary) hypertension; Z79.899 Other long term (current) drug therapy; Z85.3 Personal history of malignant neoplasm of breast; Z90.710 Acquired absence of both cervix and uterus; Z91.013 Allergy to seafood; X58.XXXA Exposure to other specified factors, initial encounter
CPT/HCPCS: 99284; 96374; 96375 ×2; 96376; J2919; J1200 ×2; J3490